=== PATIENT | male | born 1960 | race Caucasian/White ===

== ENCOUNTER 2017-07-24 07:31 | Emergency (ER) | payer OTHER ==
[2017-07-24 07:40] VITALS: RESP 16; TEMP 97.5; O2SAT 98
--- NOTE | 2017-07-24 07:56 | EDPHY ---
HPI/HX/ROS/PE/MDM Narrative: CHIEF COMPLAINT: Facial laceration HISTORY OF PRESENT ILLNESS: The patient is a 56 y/o male complaining of a facial laceration after falling while working out at the gym this morning. He says, "I tried to jump up on a box and didn't quite make it." He slipped and struck his left eyebrow and left cramer on the box. He denies preceding dizziness , chest pain, or dyspnea and describes this as a mechanical fall. He has no vision changes, headache, midline neck pain, weakness, or paresthesias following the event. He takes an 81mg aspirin daily, but no anticoagulants. No fever, chills, chest pain, shortness of breath, palpitations, vomiting, diarrhea, urinary complaints, headache, lightheadedness. REVIEW OF SYSTEMS: Aside from elements discussed in the HPI, a comprehensive 10-point review of systems was reviewed and is negative. 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 VITAL SIGNS: Reviewed by me GENERAL: Well-developed, well-nourished, resting comfortably in no respiratory distress. HEENT: 2cm laceration at lateral edge of left eyebrow, no cheekbone tenderness or orbital trauma. PERRL, EOMI. Eyes: No icterus, no injection. Mouth: moist mucous membranes. No erythema or lesions. Neck: supple with no adenopathy. LUNGS: Clear to auscultation bilaterally, no wheezes, rhonchi or rales. CARDIAC: Regular rhythm, slightly bradycardic rate, rub, there is a systolic murmur. ABDOMEN: Soft, nontender, nondistended, bowel sounds normal. BACK: No CVA tenderness. EXTREMITIES: Superficial abrasion to left cramer and healing abrasions to right thigh, otherwise no trauma. No edema. Range of motion is normal throughout. NEURO: Alert and oriented, grossly nonfocal. SKIN: Warm and dry, no rash. PSYCHIATRIC: Normal mentation, no agitation. Portions of this note were transcribed by a medical customer service representative. I personally performed a history, physical exam, medical decision making, and confirmed accuracy of information the transcribed note. ED Course: This is a healthy 56 y/o male who presents with a facial laceration secondary to a mechanical fall at the gym this morning. He has a 2cm laceration to the lateral edge of his left eyebrow and superficial abrasion on his left cramer. He is neurovascularly intact. Plan for wound care and repair of laceration. Procedure: Laceration repair. Verbal consent was obtained from the patient. The linear 2cm full-thickness laceration on the left eyebrow was anesthetized using 1% lidocaine with epi. The wound was cleaned with standard ED protocol, draped and explored to its base with a gloved finger. There were no deep structures involved. The wound was repaired in multiple layer technique with 2 deep sutures of 5-0 Vicryl and 9 sutures of 6-0 Ethilon. The wound repair was simple. The procedure was performed by myself, Dr. Galicia. MDM: Differential diagnosis for the patient's injury was considered including but not limited to contusion, abrasion, laceration, fracture, open fracture, or dislocation. General Time Seen by Provider: 07/24/17 07:45 Initial Vital Signs: Initial Vital Signs Temperature (C) 36.4 C 07/24/17 07:37 Heart Rate 50 L 07/24/17 07:37 Respiratory Rate 16 07/24/17 07:37 Blood Pressure 130/92 H 07/24/17 07:37 O2 Sat (%) 98 07/24/17 07:37 O2 Delivery Mode Room Air Allergies/Adverse Reactions: No Known Allergies Allergy (Verified 07/24/17 07:37) Home Medications: Medication Instructions Recorded Aspirin [Aspirin 81mg (OTC)] 81 mg PO DAILY 02/13/13 Departure - Departure Disposition: Home, Routine, Self-Care Clinical Impression: Laceration of eyebrow, left Qualifiers: Encounter type: initial encounter Qualified Code(s): S01.112A - Laceration without foreign body of left eyelid and periocular area, initial encounter Condition: Good Instructions: Facial Laceration (ED), Acute Wounds (ED) Additional Instructions: 1. Return for suture removal in 7 days. 2. Keep site clean and dry. Do immerse head in water, though showering is okay. Do not scrub sutures, but okay to clean gently with hydrogen peroxide. Apply a thin layer of Bacitracin throughout the day while healing. 3. Okay to use Tylenol or ibuprofen as directed on the packaging if needed for pain over the next few days. 4. Return to the ED for severe headache, weakness or numbness, fever, dramatic increase in redness or swelling, or other worsening of condition. Referrals: [facility] ,. [Edm Groups for Call Sched] - As per Instructions Report Scribed for: Karyn Galicia Report Scribed by: Heaven Griffiths Date of Report: 07/24/17 Time of Report: 07:57
[2017-07-24 08:56] VITALS: BP 122/87; PULSE 51
== END 2017-07-24 08:55 | disposition home or self-care (01) ==
PROC: 08QN3ZZ Repair Right Upper Eyelid, Percutaneous Approach (ICD-10-PCS; principal; 2017-07-24)
DX: S01.112A Laceration without foreign body of left eyelid and periocular area, initial encounter (principal); W01.198A Fall on same level from slipping, tripping and stumbling with subsequent striking against other object, initial encounter